=== PATIENT | male | born 1975 | race African-American/Black ===

== ENCOUNTER 2024-03-22 19:09 | Emergency (ER) | payer OTHER ==
[~2024-03-22] VITALS: Ht 180.3 cm; Wt 104.3 kg
--- NOTE | 2024-03-22 19:25 | NUR ---
BIBPA FROM AN [facility] FOR NAUSEA AND ABD DISCOMFORT TODAY.
--- NOTE | 2024-03-22 19:35 | NUR ---
patient decline IV/medication
[2024-03-22] MEDS ORDERED: ONDANSETRON HCL/PF 4 MG/2 ML VIAL ONE (19:41)
[2024-03-22 19:48] LABS: BASOPHILS % (AUTO) 0.6 % (0.0-2.0); EOSINOPHILS % (AUTO) 0.5 % (0.0-6.0); HEMATOCRIT 48 % (39-51); HEMOGLOBIN 15.7 g/dL (13.5-17.5); LYMPHOCYTES # (AUTO) 2.4 K/uL (0.8-4.8); LYMPHOCYTES % (AUTO) 42.4 % (20.0-44.0); MEAN CORPUSCULAR HEMOGLOBIN 30 PG (26.0-33.0); MEAN CORPUSCULAR HGB CONC 33 g/dl (31.0-36.0); MEAN CORPUSCULAR VOLUME 91 fL (80-96); MONOCYTES # (AUTO) 0.3 K/uL (0.1-1.30); MONOCYTES % (AUTO) 5.8 % (2.0-12.0); NEUTROPHILS # (AUTO) 2.9 K/uL (1.8-8.9); NEUTROPHILS % (AUTO) 50.7 % (43.0-81.0); PLATELET COUNT (AUTO) 125 K/uL (150-450); RED BLOOD CELL COUNT(AUTO) 5.29 MIL/uL (4.5-6.0); RED CELL DISTRIBUTION WIDTH 14.1 % (11.5-15.0); WHITE BLOOD COUNT (AUTO) 5.7 K/uL (4.3-11.0)
[2024-03-22] MEDS: IV NS 0.9% 1,000 ML BAG IV ONE (19:50)
[2024-03-22] MEDS: ONDANSETRON HCL/PF 4 MG/2 ML VIAL IVP ONE (19:55)
[2024-03-22 19:57] LABS: CREATININE 1.1 mg/dL (0.6-1.3); POTASSIUM 3.8 mmol/L (3.5-5.1)
[2024-03-22 20:00] LABS: CALCIUM, SERUM 9.5 mg/dL (8.5-10.1)
[2024-03-22 20:02] LABS: ALBUMIN 4.1 g/dL (3.4-5.0); BILIRUBIN,DIRECT 0.2 mg/dL (0.0-0.2); BILIRUBIN,TOTAL 0.8 mg/dL (0.2-1.0); TOTAL PROTEIN, SERUM 7.4 g/dL (6.4-8.2)
--- NOTE | 2024-03-22 20:04 | NUR ---
URINE SAMPLE SENT TO LAB
[2024-03-22 20:35] LABS: APPEARANCE,URINE CLEAR (CLEAR); BILIRUBIN,URINE NEGATIVE (NEGATIVE); BLOOD, URINE NEGATIVE Ery/uL (NEGATIVE); COLOR,URINE OTHER (YELLOW); KETONES,URINE NEGATIVE (NEGATIVE); LEUKOCYTE ESTERASE ,URINE NEGATIVE (NEGATIVE); NITRITE, URINE NEGATIVE (NEGATIVE); PROTEIN,URINE NEGATIVE (NEGATIVE); UGLUCOSE NEGATIVE (NEGATIVE); UROBILINOGEN,URINE 0.2 EU/dL (0.2)
--- NOTE | 2024-03-22 21:07 | NUR ---
[facility] CALLED FOR BLS GOING BACK TO SNF PER DISPATCH - ETA 45 MIN
[2024-03-22] MEDS ORDERED: FAMO-131 PO (21:08)
[2024-03-22] MEDS ORDERED: POLY119P PO (21:08)
[2024-03-22] MEDS ORDERED: ONDA4TAB5 PO (21:08)
[2024-03-22 21:42] VITALS: BP 127/88; TEMP 97.8; O2SAT 96
--- NOTE | 2024-03-22 21:42 | NUR ---
PATIENT PICKED UP BY [facility] STAFF AND REPORT WAS GIVEN GOING BACK TO [facility] IN A STABLE CONDITION.
== END 2024-03-22 21:43 ==
LOC: ER 19:11
DX: R10.9 Unspecified abdominal pain (principal); K59.00 Constipation, unspecified; R11.2 Nausea with vomiting, unspecified; I10 Essential (primary) hypertension
CPT/HCPCS: 99283; 96374; 96361; 85025; 80048; 83690; 80076; 81003; 36415; J2405; J7030

== ENCOUNTER 2024-03-26 10:50 | Emergency (ER) | payer OTHER ==
[~2024-03-26] VITALS: Ht 177.8 cm; Wt 110.2 kg
[~2024-03-26 10:50] MED LIST: FAMO-131 PO; ONDA4TAB5 PO; POLY119P PO
--- NOTE | 2024-03-26 11:20 | NUR ---
JOHN HENRIQUEZ From [facility] "Had an argument with another resident was asked to leave. Feels Anxious. Wants to be placed to a different facility"
--- NOTE | 2024-03-26 11:30 | NUR ---
SEEN BY DR BELL, CLEARED FOR DISCHARGE BACK TO FACILITY
--- NOTE | 2024-03-26 12:18 | NUR ---
[facility] ETA 90 MIN
[2024-03-26 15:29] VITALS: BP 127/80; TEMP 98; O2SAT 98
--- NOTE | 2024-03-26 15:30 | NUR ---
Patient discharged to home in stable condition. Written and verbal after care instructions given. Patient verbalizes understanding of instruction.
== END 2024-03-26 15:29 | disposition home or self-care (01) ==
LOC: ER 10:53
DX: Z00.00 Encounter for general adult medical examination without abnormal findings (principal); I10 Essential (primary) hypertension; Z87.19 Personal history of other diseases of the digestive system